=== PATIENT | female | born 1995 | race Caucasian/White ===

== ENCOUNTER 2019-05-26 22:13 | Emergency (ER) | payer SELFPAY ==
[2019-05-27] MEDS ORDERED: ACETAMINOPHEN 325 MG TABLET PO ONE (00:54)
[2019-05-27 02:00] LABS: APPEARANCE,URINE SLIGHTLY-CLOUDY; BILIRUBIN,URINE NEGATIVE (NEGATIVE); COLOR,URINE YELLOW; GLUCOSE, URINE NEGATIVE (NEGATIVE); KETONES,URINE TRACE mg/dL (NEGATIVE); LEUKOCYTE ESTERASE,URINE SMALL (NEGATIVE); NITRITE,URINE NEGATIVE (NEGATIVE); PROTEIN,URINE NEGATIVE (NEGATIVE); URINE SPECIFIC GRAVITY 1.023; UROBILINOGEN,URINE NEGATIVE mg/dL (<2.0)
[2019-05-27 02:16] LABS: ABSOLUTE EOSINOPHILS # (AUTO) 0.1 10^3/uL (0.0-0.6); ABSOLUTE MONOCYTES (AUTO) 0.5 10^3/uL (0.1-1.4); ABSOLUTE NEUT (AUTO) 3.3 10^3/uL (1.7-8.2); BASOPHILS % (AUTO) 0.5 % (0-2); HEMATOCRIT 36.2 % (36.0-47.0); HEMOGLOBIN 12.4 g/dL (12.0-15.5); LYMPHOCYTES % (AUTO) 43.8 % (13-45); MEAN CORPUSCULAR HEMOGLOBIN 30.5 pg (27.0-33.4); MEAN CORPUSCULAR HGB CONC 34.4 g/dL (32.0-36.0); MEAN CORPUSCULAR VOLUME 89 fl (80-97); MONOCYTES % (AUTO) 6.7 % (3-13); PLATELET COUNT 247 10^3/uL (150-450); RED BLOOD COUNT 4.08 10^6/uL (3.72-5.28); TOTAL CELLS COUNTED % (AUTO) 100 %; WHITE BLOOD COUNT 6.9 10^3/uL (4.0-10.5)
[2019-05-27 02:19] LABS: ALBUMIN 4.7 g/dL (3.5-5.0); ALKALINE PHOSPHATASE 74 U/L (38-126); ANION GAP 16 (5-19); ASPARTATE AMINO TRANSFERASE 43 U/L (14-36); BILIRUBIN,DIRECT 0.2 mg/dL (0.0-0.4); BILIRUBIN,TOTAL 0.3 mg/dL (0.2-1.3); BLOOD UREA NITROGEN 14 mg/dL (7-20); CALCIUM 10.4 mg/dL (8.4-10.2); CARBON DIOXIDE 25 mmol/L (22-30); CHLORIDE 97 mmol/L (98-107); GLUCOSE 118 mg/dL (75-110); POTASSIUM 3.8 mmol/L (3.6-5.0); TOTAL PROTEIN 7.8 g/dL (6.3-8.2)
--- NOTE | 2019-05-27 04:12 | ER Document Report ---
ED General - General Chief Complaint: Weakness Stated Complaint: LEFT SIDED WEAKNESS Time Seen by Provider: 05/27/19 04:03 Primary Care Provider: LISANDRO PINK NP [Primary Care Provider] - Follow up as needed Mode of Arrival: Ambulatory Information source: Patient Notes: 23-year-old female presented to ED for complaint of pain and swelling to the left upper thigh area that started on Tuesday. She states she does not remember injuring her thigh at any time. She states she has had a painful weak area in this area and she is also had some weakness to her left arm feels like somebody punched her. States she does not remember any injuries to either of these areas but she does work at [employer]. She does have a history of diabetes and is on Metformin she also has kidney problems and hypothyroid. TRAVEL OUTSIDE OF THE [place] IN LAST 30 DAYS: No - HPI Onset: Other Onset/Duration: Gradual - Tuesday Quality of pain: Achy Severity: Moderate Pain Level: 2 Associated symptoms: Leg swelling Exacerbated by: Denies Relieved by: Denies Similar symptoms previously: Yes Recently seen / treated by doctor: No - Related Data Allergies/Adverse Reactions: No Known Allergies Allergy (Unverified 05/07/11 18:35) Home Medications: Levpthyroxine. Lisinopril. metformin. glipizide Past Medical History - General Information source: Patient - Social History Smoking Status: Never Smoker Chew tobacco use (# tins/day): No Frequency of alcohol use: None Drug Abuse: None Lives with: Family Family History: Reviewed & Not Pertinent Patient has suicidal ideation: No Patient has homicidal ideation: No - Past Medical History Cardiac Medical History: Reports: None Pulmonary Medical History: Reports: None EENT Medical History: Reports: None Neurological Medical History: Endocrine Medical History: Reports: Hx Diabetes Mellitus Type 2, Hx Hypothyroidism Renal/ Medical History: Reports: Hx Ovarian Cysts - PCOS Malignancy Medical History: Reports: None GI Medical History: Reports: Hx Gastroesophageal Reflux Disease Musculoskeletal Medical History: Reports None Skin Medical History: Reports None Psychiatric Medical History: Reports: Hx Obsessive Compulsive Disorder Traumatic Medical History: Reports: None Infectious Medical History: Reports: None Past Surgical History: Reports: Hx Gynecologic Surgery - Ovarian cyst drained at 12 or 13 - Immunizations Immunizations up to date: Yes Hx Diphtheria, Pertussis, Tetanus Vaccination: Yes Review of Systems - Review of Systems Constitutional: No symptoms reported EENT: No symptoms reported Cardiovascular: No symptoms reported Respiratory: No symptoms reported Gastrointestinal: No symptoms reported Genitourinary: No symptoms reported Female Genitourinary: No symptoms reported Musculoskeletal: Muscle pain - Tenderness to left arm and leg Skin: No symptoms reported Hematologic/Lymphatic: No symptoms reported Neurological/Psychological: No symptoms reported -: Yes All other systems reviewed and negative Physical Exam - Vital signs Vitals: Temp Pulse Resp BP Pulse Ox 98.5 F 105 H 20 131/80 H 100 05/26/19 22:24 05/26/19 22:24 05/26/19 22:24 05/26/19 22:24 05/26/19 22:24 Interpretation: Normal - General General appearance: Appears well, Alert - HEENT Head: Normocephalic, Atraumatic Eyes: Normal Pupils: PERRL - Respiratory Respiratory status: No respiratory distress Chest status: Nontender Breath sounds: Normal Chest palpation: Normal - Cardiovascular Rhythm: Regular Heart sounds: Normal auscultation Murmur: No - Abdominal Inspection: Normal Distension: No distension Bowel sounds: Normal Tenderness: Nontender Organomegaly: No organomegaly - Back Back: Normal, Nontender - Extremities General upper extremity: Normal inspection, Nontender, Normal color, Normal ROM, Normal temperature General lower extremity: Normal inspection, Normal color, Normal ROM, Normal temperature, Normal weight bearing. No: Naila's sign Arm: Tender Thigh: Tender - Neurological Neuro grossly intact: Yes Cognition: Normal Orientation: AAOx4 Alexandru Coma Scale Eye Opening: Spontaneous Alexandru Coma Scale Verbal: Oriented Alexandru Coma Scale Motor: Obeys Commands Alexandru Coma Scale Total: 15 Speech: Normal Motor strength normal: LUE, RUE, LLE, RLE Sensory: Normal - Psychological Associated symptoms: Normal affect, Normal mood - Skin Skin Temperature: Warm Skin Moisture: Dry Skin Color: Normal Course - Vital Signs Vital signs: Temp Pulse Resp BP Pulse Ox 98.6 F 92 18 130/69 H 98 05/27/19 04:31 05/27/19 04:31 05/27/19 04:31 05/27/19 04:31 05/27/19 04:31 - Laboratory Result Diagrams: 05/27/19 01:55 05/27/19 01:55 Laboratory results interpreted by me: 05/26/19 05/27/19 23:58 01:55 Chloride 97 L Creatinine 0.35 L Glucose 118 H Calcium 10.4 H AST 43 H Urine Ketones TRACE H Ur Leukocyte Esterase SMALL H Discharge - Discharge Clinical Impression: tenderness to left thigh Condition: Stable Disposition: HOME, SELF-CARE Additional Instructions: You were seen today for pain and tenderness to the left upper thigh. There is no obvious cause for your pain and tenderness to the thigh at this time. It could be a contusion. CONTUSION: Your injury has resulted in a contusion -- a crushing of the deep tissues. No injury to important structures was detected during the physician's exam. Contusions vary in the amount of pain they cause, and in the length of time required for healing. Typically, the area will become bruised, and will remain painful to touch for two or three weeks. However, most patients are back to working and playing within a few days. After the initial period of rest and cold-packs, your symptoms (together with the doctor's recommendations) will determine how rapidly you can get back to full activity. Usually this means "do what feels okay, but don't do things that hurt." If re-examination was recommended, it's important to follow up as instructed. Call the doctor or return any time if pain increases, if swelling becomes severe, if you develop numbness or weakness in an injured extremity, or if any other alarming symptoms occur. USE OF TYLENOL (ACETAMINOPHEN): Acetaminophen may be taken for pain relief or fever control. It's much safer than aspirin, offering a wider range of "safe" dosages. It is safe during . Some brand names are Tylenol, Panadol, Datril, Anacin 3, Tempra, and Liquiprin. Acetaminophen can be repeated every four hours. The following are maximum recommended dosages: WEIGHT Dose Drops Elixir Chewable(80mg) (LBS.) drprs=droppers tsp=teaspoon 6 40 mg 0.4 ml (1/2) 6-11 80 mg 0.8 ml (full) tsp 1 tab 12-16 120 mg 1 1/2 drprs 3/4 tsp 1 1/2 tabs 17-23 160 mg 2 drprs 1 tsp 2 tabs 24-30 240 mg 3 drprs 1 1/2 tsp 3 tabs 30-35 320 mg 2 tsp 4 tabs 36-41 360 mg 2 1/4 tsp 4 1/2 tabs 42-47 400 mg 2 1/2 tsp 5 tabs 48-53 480 mg 3 tsp 6 tabs 54-59 520 mg 3 1/4 tsp 6 1/2 tabs 60-64 560 mg 3 1/2 tsp 7 tabs 65-70 600 mg 3 3/4 tsp 7 1/2 tabs 71-76 640 mg 4 tsp 8 tabs 77-82 720 mg 4 1/2 tsp 9 tabs 83-88 800 mg 5 tsp 10 tabs >89 pounds or adults 650 mg to 900 mg Acetaminophen can be repeated every four hours. Maximum dose not to exceed 4000 mg a day. These maximum recommended dosages are slightly higher than the dosages written on the product container, but these dosages are very safe and below the toxic dosage for acetaminophen. ICE PACKS: Apply ice packs frequently against the painful area. Many different schedules are recommended, such as "20 minutes on, 20 minutes off" or "one hour ice, two hours rest." If you need to work, you may need to go longer between ice treatments. You should plan to have the area ice packed AT LEAST one fourth of the time. The ice should be applied over the wrap, tape, or splint, or over a layer of cloth -- not directly against the skin. Some ice bags have a built-in cloth and can be put directly on the skin. WARM PACKS: After approximately two days, apply gentle heat (such as a heating pad or hot water bottle) for about 20 to 30 minutes about every two hours -- at least four times daily. Warmth and elevation will help you make a more rapid recovery, and will ease the pain considerably. Do not use HOT heat, and never apply heat for longer than 30 minutes. The continuous heat can invisibly damage skin and muscles -- even when no burn is seen on the surface. Damaged muscles can make you MORE sore. FOLLOW-UP CARE: If you have been referred to a physician for follow-up care, call the physicians office for an appointment as you were instructed or within the next two days. If you experience worsening or a significant change in your symptoms, notify the physician immediately or return to the Emergency Department at any time for re-evaluation. Forms: Elevated Blood Pressure, Return to Work Referrals: LISANDRO PINK NP [Primary Care Provider] - Follow up as needed
[2019-05-27 04:33] VITALS: BP 130/69
--- NOTE | 2019-05-27 19:33 | EKG REPORT ---
SEVERITY:- ABNORMAL ECG - SINUS RHYTHM CONSIDER LEFT VENTRICULAR HYPERTROPHY : Confirmed by: Iveth Bauman MD 27-May-2019 19:33:09
== END 2019-05-27 04:31 | disposition home or self-care (01) ==
LOC: ER 22:13
DX: M79.652 Pain in left thigh (principal); R53.1 Weakness; M79.89 Other specified soft tissue disorders; E11.9 Type 2 diabetes mellitus without complications; Z79.84 Long term (current) use of oral hypoglycemic drugs
CPT/HCPCS: 36415; 80053; 81001; 81025; 85025; 87086; 87088; 87186; 93005; 93010; 99283

== ENCOUNTER 2019-07-16 18:26 | Emergency (ER) | payer SELFPAY ==
--- NOTE | 2019-07-16 19:22 | ER Document Report ---
ED Medical Screen (RME) - General Chief Complaint: Sore Throat Stated Complaint: SORE THROAT,HEADACHE,CONGESTION Time Seen by Provider: 07/16/19 19:18 Primary Care Provider: LISANDRO PINK NP [Primary Care Provider] - Follow up as needed Mode of Arrival: Ambulatory Information source: Patient Notes: 23-year-old female presented to ED with cough cold congestion with sore throat. She is here with her sister who also has fever nausea and vomiting. This young lady has diabetes type 2 with a pulse of 112. Otherwise vital signs are stable. Patient is alert oriented respirations regular nonlabored speaking in full sentences. She does have a history of PCOS diabetes type 2 and has had 1 surgery cyst drained. She does not smoke drink or use any drugs. I have greeted and performed a rapid initial assessment of this patient. A comprehensive ED assessment and evaluation of the patient, analysis of test results and completion of medical decision making process will be conducted by an additional ED providers. TRAVEL OUTSIDE OF THE [place] IN LAST 30 DAYS: No - Related Data Allergies/Adverse Reactions: No Known Allergies Allergy (Unverified 05/07/11 18:35) Past Medical History - Past Medical History Cardiac Medical History: Pulmonary Medical History: Denies: Hx Tuberculosis Neurological Medical History: Endocrine Medical History: Reports: Hx Diabetes Mellitus Type 2, Hx Hypothyroidism Renal/ Medical History: Reports: Hx Ovarian Cysts - PCOS, Hx Pelvic Inflammatory Disease Malignancy Medical History: Denies: Hx Breast Cancer, Hx Cervical Cancer, Hx Ovarian Cancer GI Medical History: Reports: Hx Gastroesophageal Reflux Disease Musculoskeltal Medical History: Psychiatric Medical History: Reports: Hx Obsessive Compulsive Disorder Infectious Medical History: Past Surgical History: Reports: Hx Gynecologic Surgery - Ovarian cyst drained at 12 or 13. Denies: Hx Hysterectomy, Hx Pacemaker - Immunizations Immunizations up to date: Yes Hx Diphtheria, Pertussis, Tetanus Vaccination: Yes Physical Exam - Vital signs Vitals: Temp Pulse Resp BP Pulse Ox 98.4 F 116 H 20 148/93 H 100 07/16/19 18:39 07/16/19 18:39 07/16/19 18:39 07/16/19 18:39 07/16/19 18:39 Course - Vital Signs Vital signs: Temp Pulse Resp BP Pulse Ox 98.4 F 116 H 20 148/93 H 100 07/16/19 18:39 07/16/19 18:39 07/16/19 18:39 07/16/19 18:39 07/16/19 18:39 Doctor's Discharge - Discharge Referrals: LISANDRO PINK SALARY AND WAGE ADMINISTRATOR [Primary Care Provider] - Follow up as needed
[2019-07-16 20:12] LABS: ABSOLUTE EOSINOPHILS # (AUTO) 0.1 10^3/uL (0.0-0.6); ABSOLUTE LYMPHOCYTES (AUTO) 1.5 10^3/uL (0.5-4.7); ABSOLUTE MONOCYTES (AUTO) 0.4 10^3/uL (0.1-1.4); ABSOLUTE NEUT (AUTO) 4.4 10^3/uL (1.7-8.2); BASOPHILS % (AUTO) 0.7 % (0-2); EOSINOPHILS % (AUTO) 0.9 % (0-6); HEMATOCRIT 34.9 % (36.0-47.0); LYMPHOCYTES % (AUTO) 23.3 % (13-45); MEAN CORPUSCULAR HGB CONC 34.5 g/dL (32.0-36.0); MEAN CORPUSCULAR VOLUME 90 fl (80-97); MONOCYTES % (AUTO) 6.7 % (3-13); PLATELET COUNT 195 10^3/uL (150-450); RED BLOOD COUNT 3.87 10^6/uL (3.72-5.28); RED CELL DISTRIBUTION WIDTH 13.4 % (11.5-14.0); SEGMENTED NEUTROPHILS % (AUTO) 68.4 % (42-78); TOTAL CELLS COUNTED % (AUTO) 100 %; WHITE BLOOD COUNT 6.5 10^3/uL (4.0-10.5)
[2019-07-16 20:22] LABS: APPEARANCE,URINE CLOUDY; BILIRUBIN,URINE NEGATIVE (NEGATIVE); COLOR,URINE YELLOW; GLUCOSE, URINE 50 mg/dL (NEGATIVE); KETONES,URINE 20 mg/dL (NEGATIVE); PROTEIN,URINE NEGATIVE (NEGATIVE); URINE SPECIFIC GRAVITY 1.027; UROBILINOGEN,URINE NEGATIVE mg/dL (<2.0)
[2019-07-16 20:28] LABS: A TYPE INFLUENZA AG NEGATIVE (NEGATIVE); B INFLUENZA AG NEGATIVE (NEGATIVE)
[2019-07-16 20:34] LABS: ALBUMIN 4.5 g/dL (3.5-5.0); ALKALINE PHOSPHATASE 64 U/L (38-126); ANION GAP 12 (5-19); ASPARTATE AMINO TRANSFERASE 42 U/L (14-36); BILIRUBIN,TOTAL 0.4 mg/dL (0.2-1.3); BLOOD UREA NITROGEN 10 mg/dL (7-20); CALCIUM 9.5 mg/dL (8.4-10.2); CARBON DIOXIDE 25 mmol/L (22-30); CHLORIDE 101 mmol/L (98-107); GLUCOSE 165 mg/dL (75-110); POTASSIUM 4.3 mmol/L (3.6-5.0); TOTAL PROTEIN 7.2 g/dL (6.3-8.2)
--- NOTE | 2019-07-17 00:38 | ER Document Report ---
ED Flu Like - General Chief Complaint: Sore Throat Stated Complaint: SORE THROAT,HEADACHE,CONGESTION Time Seen by Provider: 07/16/19 19:18 Primary Care Provider: LISANDRO PINK NP [Primary Care Provider] - Follow up as needed Mode of Arrival: Ambulatory Notes: CHIEF COMPLAINT: Flulike symptoms for 1 day HPI: 23-year-old female with 1 day of flulike symptoms. Complaining of sore throat. Today developed generalized body ache and nausea without vomiting. No dysuria. Denies abdominal pain. States that she did develop very slight dry cough today. Patient sister has same complaints but became sick first and was vomiting. ROS: See HPI - all other systems were reviewed and are otherwise negative Constitutional: no fever Eyes: no drainage, no blurred vision ENT: no runny nose, positive sore throat sore throat Cardiovascular: no chest pain Resp: no SOB, positive cough cough GI: no vomiting, no diarrhea, no abdominal pain, positive nausea : no dysuria Integumentary: no rash Allergy: no hives Musculoskeletal: Positive extremity pain or swelling Neurological: no numbness/tingling, no weakness MEDICATIONS: I agree with the patient medications as charted by the RN. ALLERGIES: I agree with the allergies as charted by the RN. PAST MEDICAL HISTORY/PAST SURGICAL HISTORY: Reviewed and agree as charted by RN. SOCIAL HISTORY: Reviewed and agree as charted by RN. FAMILY HISTORY: No significant familial comorbid conditions directly related to patient complaint EXAM: Reviewed vital signs as charted by RN. CONSTITUTIONAL: Alert and oriented and responds appropriately to questions. Well-appearing; well-nourished HEAD: Normocephalic; atraumatic EYES: PERRL; Conjunctivae clear, sclerae non-icteric ENT: normal nose; no rhinorrhea; moist mucous membranes; pharynx mild erythema noted, no uvula edema or deviation, no tonsillar hypertrophy, phonation normal NECK: Supple without meningismus; non-tender; no cervical lymphadenopathy, no masses CARD: RRR; no murmurs, no clicks, no rubs, no gallops; symmetric distal pulses RESP: Normal chest excursion without splinting or tachypnea; breath sounds clear and equal bilaterally; no wheezes, no rhonchi, no rales, pulse oximetry 99% on room air not hypoxic ABD/GI: Normal bowel sounds; non-distended; soft, non-tender, no rebound, no guarding; no palpable organomegaly or masses. BACK: The back appears normal and is non-tender to palpation, there is no CVA tenderness EXT: Normal ROM in all joints; non-tender to palpation; no cyanosis, no effusions, no edema SKIN: Normal color for age and race; warm; dry; good turgor; no acute lesions noted NEURO: Moves all extremities equally; Motor and sensory function intact PSYCH: The patient's mood and manner are appropriate. Grooming and personal hygiene are appropriate. MDM: 23-year-old female presenting for flulike symptoms. Initial work-up through triage process, normal lab work, negative strep negative flu. Lung sounds are clear to auscultation she developed a dry cough today, low suspicion for pneumonia. Sister has similar symptoms and is also presenting, likely a viral etiology will treat symptomatically TRAVEL OUTSIDE OF THE [place] IN LAST 30 DAYS: No - Related Data Allergies/Adverse Reactions: No Known Allergies Allergy (Verified 07/16/19 19:23) Home Medications: metformin, glipizide, lisinopril, synthroid Past Medical History - General Information source: Patient - Social History Smoking Status: Never Smoker Frequency of alcohol use: None Drug Abuse: None Family History: Reviewed & Not Pertinent Patient has suicidal ideation: No Patient has homicidal ideation: No - Past Medical History Cardiac Medical History: Pulmonary Medical History: Denies: Hx Tuberculosis Neurological Medical History: Endocrine Medical History: Reports: Hx Diabetes Mellitus Type 2, Hx Hypothyroidism Renal/ Medical History: Reports: Hx Ovarian Cysts - PCOS, Hx Pelvic Inflammatory Disease Malignancy Medical History: Denies: Hx Breast Cancer, Hx Cervical Cancer, Hx Ovarian Cancer GI Medical History: Reports: Hx Gastroesophageal Reflux Disease Musculoskeletal Medical History: Psychiatric Medical History: Reports: Hx Obsessive Compulsive Disorder Infectious Medical History: Past Surgical History: Reports: Hx Gynecologic Surgery - Ovarian cyst drained at 12 or 13. Denies: Hx Hysterectomy, Hx Pacemaker - Immunizations Immunizations up to date: Yes Hx Diphtheria, Pertussis, Tetanus Vaccination: Yes Physical Exam - Vital signs Vitals: Temp Pulse Resp BP Pulse Ox 98.4 F 116 H 20 148/93 H 100 07/16/19 18:39 07/16/19 18:39 07/16/19 18:39 07/16/19 18:39 07/16/19 18:39 Course - Vital Signs Vital signs: Temp Pulse Resp BP Pulse Ox 98.8 F 99 20 139/82 H 98 07/16/19 23:43 07/16/19 23:43 07/16/19 23:43 07/16/19 23:43 07/16/19 23:43 - Laboratory Result Diagrams: 07/16/19 19:24 07/16/19 19:24 Laboratory results interpreted by me: 07/16/19 07/16/19 07/16/19 19:24 19:24 19:24 Hct 34.9 L Creatinine 0.38 L Glucose 165 H AST 42 H ALT 43 H Urine Glucose (UA) 50 H Urine Ketones 20 H Leukocyte Esterase Rfl TRACE H Discharge - Discharge Clinical Impression: Influenza-like illness Condition: Stable Disposition: HOME, SELF-CARE Additional Instructions: 1. hydrate well at home with juices and water 2. treat fevers and body aches with Motrin and Tylenol 3. out of school or work for the next 2 days 4. follow up recheck with your PCP in 1-2 days, call for appt. 5. return to the ED for worsening condition 6. Zofran for nausea Prescriptions: Ibuprofen [Motrin 600 Mg Tablet] 600 mg PO Q6H #15 tablet Ondansetron [Zofran Odt 4 mg Tablet] 1 - 2 tab PO Q4H PRN #15 tab.rapdis PRN Reason: For Nausea/Vomiting Referrals: LISANDRO PINK, AUTOMATION DEVELOPER [Primary Care Provider] - Follow up as needed
[2019-07-17 01:01] VITALS: BP 139/76
== END 2019-07-17 01:06 | disposition home or self-care (01) ==
LOC: ER 18:26
DX: J11.1 Influenza due to unidentified influenza virus with other respiratory manifestations (principal); J02.9 Acute pharyngitis, unspecified; R51 Headache; R09.81 Nasal congestion; M79.10 Myalgia, unspecified site; R11.0 Nausea; Z79.84 Long term (current) use of oral hypoglycemic drugs; Z79.899 Other long term (current) drug therapy; E11.9 Type 2 diabetes mellitus without complications
CPT/HCPCS: 36415; 80053; 81001; 84703; 85025; 87070; 87086; 87088; 87186; 87804; 87880; 99283

== ENCOUNTER 2019-10-10 11:15 | Emergency (ER) | payer OTHER ==
--- NOTE | 2019-10-10 11:50 | ER Document Report ---
ED Respiratory Problem - General Chief Complaint: Cough Stated Complaint: COUGH Time Seen by Provider: 10/10/19 11:33 Primary Care Provider: LISANDRO PINK NP [Primary Care Provider] - Follow up as needed Notes: CHIEF COMPLAINT: Sore throat for 3 days HPI: 24-year-old female presenting for sore throat for 3 days. No voice change. No definite fever. Slight dry cough today. No shortness of breath no chest pain. 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 ALLERGIES: I agree with the allergies as charted by the RN. PAST MEDICAL HISTORY/PAST SURGICAL HISTORY: Reviewed and agree as charted by RN. SOCIAL HISTORY: Reviewed and agree as charted by RN. FAMILY HISTORY: No significant familial comorbid conditions directly related to patient complaint EXAM: Reviewed vital signs as charted by RN. CONSTITUTIONAL: Alert and oriented and responds appropriately to questions. Well-appearing; well-nourished HEAD: Normocephalic; atraumatic EYES: PERRL; Conjunctivae clear, sclerae non-icteric ENT: normal nose; no rhinorrhea; moist mucous membranes; posterior pharynx with mild tonsillar hypertrophy with exudate, no uvula edema or deviation, phonation normal NECK: Supple without meningismus; non-tender; + 99% on room air not hypoxic cervical lymphadenopathy, no masses CARD: RRR; no murmurs, no clicks, no rubs, no gallops; symmetric distal pulses RESP: Normal chest excursion without splinting or tachypnea; breath sounds clear and equal bilaterally; no wheezes, no rhonchi, no rales, pulse oximetry ABD/GI: Normal bowel sounds; non-distended; soft, non-tender, no rebound, no guarding; no palpable organomegaly or masses. BACK: The back appears normal and is non-tender to palpation, there is no CVA tenderness EXT: Normal ROM in all joints; non-tender to palpation; no cyanosis, no effusions, no edema SKIN: Normal color for age and race; warm; dry; good turgor; no acute lesions noted NEURO: Moves all extremities equally; Motor and sensory function intact PSYCH: The patient's mood and manner are appropriate. Grooming and personal hygiene are appropriate. MDM: 24-year-old female with sore throat complaint for 3 days. Rapid strep sent. TRAVEL OUTSIDE OF THE [place] IN LAST 30 DAYS: No - Related Data Allergies/Adverse Reactions: No Known Allergies Allergy (Verified 07/16/19 19:23) Past Medical History - Social History Smoking Status: Unknown if Ever Smoked Family History: Reviewed & Not Pertinent - Past Medical History Cardiac Medical History: Pulmonary Medical History: Denies: Hx Tuberculosis Neurological Medical History: Endocrine Medical History: Reports: Hx Diabetes Mellitus Type 2, Hx Hypothyroidism Renal/ Medical History: Reports: Hx Ovarian Cysts - PCOS, Hx Pelvic Inflammatory Disease Malignancy Medical History: Denies: Hx Breast Cancer, Hx Cervical Cancer, Hx Ovarian Cancer GI Medical History: Reports: Hx Gastroesophageal Reflux Disease Musculoskeletal Medical History: Psychiatric Medical History: Reports: Hx Obsessive Compulsive Disorder Infectious Medical History: Past Surgical History: Reports: Hx Gynecologic Surgery - Ovarian cyst drained at 12 or 13. Denies: Hx Hysterectomy, Hx Pacemaker - Immunizations Immunizations up to date: Yes Hx Diphtheria, Pertussis, Tetanus Vaccination: Yes Physical Exam - Vital signs Vitals: Temp Pulse Resp BP Pulse Ox 98.4 F 104 H 16 135/89 H 97 10/10/19 11:21 10/10/19 11:21 10/10/19 11:21 10/10/19 11:21 10/10/19 11:21 Course - Re-evaluation Re-evalutation: 10/10/19 12:37 Patient's rapid strep is negative but I believe patient has tonsillitis. Will treat with amoxicillin. Throat culture is pending. - Vital Signs Vital signs: Temp Pulse Resp BP Pulse Ox 98.4 F 104 H 16 135/89 H 97 10/10/19 11:46 10/10/19 11:21 10/10/19 11:21 10/10/19 11:21 10/10/19 11:21 Discharge - Discharge Clinical Impression: Tonsillitis Condition: Stable Disposition: HOME, SELF-CARE Additional Instructions: Your rapid strep test was negative today, there is a throat culture pending but I do believe that you have tonsillitis, will treat with antibiotics to take as directed. Salt water gargles to help with throat discomfort 3 or 4 times daily. Take ibuprofen or Tylenol consistently for pain. Follow-up with a primary care provider for reevaluation of symptoms call for appointment. Return for worsening symptoms Prescriptions: Amoxicillin 1 tab PO TID #30 tab Forms: Return to Work Referrals: LISANDRO PINK NP [Primary Care Provider] - Follow up as needed
[2019-10-10 13:02] VITALS: BP 132/84
== END 2019-10-10 12:55 | disposition home or self-care (01) ==
LOC: ER 11:15
DX: J03.90 Acute tonsillitis, unspecified (principal); R05 Cough; E11.9 Type 2 diabetes mellitus without complications
CPT/HCPCS: 87070; 87880; 99282

== ENCOUNTER 2019-11-30 12:25 | Emergency (ER) | payer OTHER ==
[2019-11-30] MEDS ORDERED: NORMAL SALINE 1000 ML 1,000 ML IV ONE ×2 (13:13→16:16)
[2019-11-30] MEDS ORDERED: ONDANSETRON HCL INJ/PF 4 MG/2 ML SDV IV ONE (13:14)
[2019-11-30 13:50] LABS: HEMATOCRIT 34.8 % (36.0-47.0); HEMOGLOBIN 12.2 g/dL (12.0-15.5); MEAN CORPUSCULAR HEMOGLOBIN 31.5 pg (27.0-33.4); MEAN CORPUSCULAR VOLUME 90 fl (80-97); PLATELET COUNT 133 10^3/uL (150-450); RED BLOOD COUNT 3.86 10^6/uL (3.72-5.28); RED CELL DISTRIBUTION WIDTH 13.6 % (11.5-14.0)
[2019-11-30 14:10] LABS: ALBUMIN 4.4 g/dL (3.5-5.0); ALKALINE PHOSPHATASE 68 U/L (38-126); ANION GAP 8 (5-19); ASPARTATE AMINO TRANSFERASE 55 U/L (14-36); BLOOD UREA NITROGEN 10 mg/dL (7-20); CALCIUM 9.2 mg/dL (8.4-10.2); CARBON DIOXIDE 27 mmol/L (22-30); CHLORIDE 102 mmol/L (98-107); GLUCOSE 117 mg/dL (75-110); POTASSIUM 3.5 mmol/L (3.6-5.0); TOTAL PROTEIN 7.8 g/dL (6.3-8.2)
[2019-11-30 14:14] LABS: ABSOLUTE LYMPHOCYTES# (MANUAL) 2.6 10^3/uL (0.5-4.7); ABSOLUTE MONOCYTES # (MANUAL) 0.6 10^3/uL (0.1-1.4); BASOPHILS % (MANUAL) 0 % (0-2); EOSINOPHILS % (MANUAL) 0 % (0-6); LYMPHOCYTES % (MANUAL) 40 % (13-45); MONOCYTES % (MANUAL) 12 % (3-13); SEGMENTED NEUTROPHILS % (MAN) 36 % (42-78); TOTAL CELLS COUNTED 100
[2019-11-30 14:15] LABS: ANISOCYTOSIS SLIGHT; POLYCHROMASIA SLIGHT
[2019-11-30 14:16] LABS: PLATELET COMMENT DECREASED; PLATELET GIANT PRESENT
--- NOTE | 2019-11-30 14:34 | ER Document Report ---
ED GI/ - General Chief Complaint: Nausea/Vomiting Stated Complaint: HEADACHE/BACK PAIN/N/V Time Seen by Provider: 11/30/19 13:13 Primary Care Provider: NARAYAN,NO [Primary Care Provider] - Follow up as needed Notes: CHIEF COMPLAINT: Right lower back pain nausea vomiting HPI: 24-year-old female presenting to the emergency department complaining of right lower back pain with an episode of nausea vomiting today. Patient does work in a restaurant. She is concerned about COVID. Denies dysuria. Denies fever. Denies chest pain cough shortness of breath sore throat. Denies abdominal or pelvic pain ROS: See HPI - all other systems were reviewed and are otherwise negative Constitutional: no fever Eyes: no drainage, no blurred vision ENT: no runny nose, no sore throat Cardiovascular: no chest pain Resp: no SOB, no cough GI: + vomiting, no diarrhea, no abdominal pain : no dysuria Integumentary: no rash Allergy: no hives Musculoskeletal: no extremity pain or swelling Neurological: no numbness/tingling, no weakness MEDICATIONS: I agree with the patient medications as charted by the RN. ALLERGIES: I agree with the allergies as charted by the RN. PAST MEDICAL HISTORY/PAST SURGICAL HISTORY: Reviewed and agree as charted by RN. SOCIAL HISTORY: Reviewed and agree as charted by RN. FAMILY HISTORY: No significant familial comorbid conditions directly related to patient complaint EXAM: Reviewed vital signs as charted by RN. CONSTITUTIONAL: Alert and oriented and responds appropriately to questions. Well-appearing; well-nourished HEAD: Normocephalic; atraumatic EYES: PERRL; Conjunctivae clear, sclerae non-icteric ENT: normal nose; no rhinorrhea; moist mucous membranes; pharynx without lesions noted, no uvula edema or deviation, no tonsillar hypertrophy, phonation normal NECK: Supple without meningismus; non-tender; no cervical lymphadenopathy, no masses CARD: RRR; no murmurs, no clicks, no rubs, no gallops; symmetric distal pulses RESP: Normal chest excursion without splinting or tachypnea; breath sounds clear and equal bilaterally; no wheezes, no rhonchi, no rales, pulse oximetry 97% on room air not hypoxic ABD/GI: Normal bowel sounds; non-distended; soft, there is absolutely no abdominal pain or flank pain on palpation, no rebound, no guarding; no palpable organomegaly or masses. BACK: The back appears normal and is non-tender to palpation directly over the thoracic and lumbar spine. Very mild right lower lateral lumbar muscular tenderness on palpation, there is no CVA tenderness EXT: Normal ROM in all joints; non-tender to palpation; no cyanosis, no effusions, no edema SKIN: Normal color for age and race; warm; dry; good turgor; no acute lesions noted NEURO: Moves all extremities equally; Motor and sensory function intact PSYCH: The patient's mood and manner are appropriate. Grooming and personal hygiene are appropriate. MDM: 24-year-old female with an episode of vomiting today, right lower back pain that changes with position and movement. Pain does not radiate into the abdomen, unlikely to be renal colic. She has no dysuria but will check urinalys is basic screening labs and COVID test TRAVEL OUTSIDE OF THE [place] IN LAST 30 DAYS: No - Related Data Allergies/Adverse Reactions: No Known Allergies Allergy (Verified 07/16/19 19:23) Home Medications: Metformin, Glipizide Past Medical History - Social History Smoking Status: Current Some Day Smoker Family History: Reviewed & Not Pertinent - Past Medical History Cardiac Medical History: Pulmonary Medical History: Denies: Hx Tuberculosis Neurological Medical History: Endocrine Medical History: Reports: Hx Diabetes Mellitus Type 2, Hx Hypoth yroidism Renal/ Medical History: Reports: Hx Ovarian Cysts - PCOS, Hx Pelvic Inflammatory Disease Malignancy Medical History: Denies: Hx Breast Cancer, Hx Cervical Cancer, Hx Ovarian Cancer GI Medical History: Reports: Hx Gastroesophageal Reflux Disease Musculoskeletal Medical History: Psychiatric Medical History: Reports: Hx Obsessive Compulsive Disorder Infectious Medical History: Past Surgical History: Reports: Hx Gynecologic Surgery - Ovarian cyst drained at 12 or 13. Denies: Hx Hysterectomy, Hx Pacemaker - Immunizations Immunizations up to date: Yes Hx Diphtheria, Pertussis, Tetanus Vaccination: Yes Physical Exam - Vital signs Vitals: Temp Pulse Resp BP Pulse Ox 99.0 F 124 H 16 123/78 97 11/30/19 12:40 11/30/19 12:40 11/30/19 12:40 11/30/19 12:40 11/30/19 12:40 Course - Re-evaluation Re-evalutation: 11/30/19 16:03 Patient is not . Urine shows evidence of hematuria but she just started her menstrual cycle. Back pain is likely musculoskeletal in nature. Will discharge home as a person under investigation at this time follow-up PCP 11/30/19 16:15 Requested that nursing recheck heart rate prior to discharge and it is still tachycardic at 121. We will add TSH, hydration 11/30/19 16:38 I spoke with the patient about her heart rate, she states she has a history of tachycardia that was evaluated in high school. Father has history of atrial fibrillation. Awaiting EKG 11/30/19 16:43 EKG sinus tachycardia ventricular rate of 107 with a NH of 160. Possible left ventricular hypertrophy otherwise no other ectopy noted - Vital Signs Vital signs: Temp Pulse Resp BP Pulse Ox 98.9 F 121 H 16 114/64 99 11/30/19 16:12 11/30/19 16:12 11/30/19 16:12 11/30/19 16:12 11/30/19 16:12 - Laboratory Result Diagrams: 11/30/19 13:37 11/30/19 13:37 Laboratory results interpreted by me: 11/30/19 11/30/19 11/30/19 13:37 13:37 14:50 Hct 34.8 L Plt Count 133 L Seg Neuts % (Manual) 36 L Sodium 136.8 L Potassium 3.5 L Creatinine 0.42 L Glucose 117 H AST 55 H ALT 65 H Urine Blood MODERATE H Discharge - Discharge Clinical Impression: Tachycardia, Person under investigation for COVID-19 Lower back pain Qualifiers: Chronicity: acute Back pain laterality: right Sciatica presence: without sciatica Qualified Code(s): M54.5 - Low back pain Vomiting Qualifiers: Vomiting type: unspecified Vomiting Intractability: non-intractable Nausea presence: with nausea Qualified Code(s): R11.2 - Nausea with vomiting, unspe cified Condition: Stable Disposition: HOME, SELF-CARE Additional Instructions: Continue to hydrate well at home. Take Zofran for any recurrent nausea vomiting. Take naproxen for low back pain. Your lab work did not show acute emergent abnormalities. Follow-up with your primary care provider for reevaluation of symptoms call for appointment. It was noted that you are tachycardic today which means you have an elevated heart rate. Follow-up with cardiology for further evaluation of this issue. You are considered a person under investigation for COVID-19 at this time quarantine at home until you have a negative test. Prescriptions: Naproxen 500 mg PO BID PRN #14 tablet PRN Reason: Ondansetron [Zofran Odt 4 mg Tablet] 1 - 2 tab PO Q4H PRN #15 tab.rapdis PRN Reason: For Nausea/Vomiting Forms: Return to Work Referrals: NAVID WYATT MD [COMMUNITY BASED STAFF] - Follow up as needed AKILAH AVALOS MD [ACTIVE STAFF] - Follow up as needed
[2019-11-30 15:08] LABS: APPEARANCE,URINE CLEAR; BILIRUBIN,URINE NEGATIVE (NEGATIVE); COLOR,URINE STRAW; GLUCOSE, URINE NEGATIVE (NEGATIVE); KETONES,URINE NEGATIVE (NEGATIVE); LEUKOCYTE ESTERASE,URINE NEGATIVE (NEGATIVE); NITRITE,URINE NEGATIVE (NEGATIVE); PROTEIN,URINE NEGATIVE (NEGATIVE); URINE SPECIFIC GRAVITY 1.004; UROBILINOGEN,URINE NEGATIVE mg/dL (<2.0)
[2019-11-30] MEDS ORDERED: KETOROLAC TROMETHAMINE INJ/PF 30 MG/1 ML SDV IV ONE (15:54)
[2019-11-30 16:47] LABS: URINE AMPHETAMINES SCREEN NEGATIVE; URINE BARBITURATES SCREEN NEGATIVE; URINE BENZODIAZEPINES SCREEN NEGATIVE; URINE COCAINE SCREEN NEGATIVE; URINE MARIJUANA (THC) SCREEN NEGATIVE; URINE METHADONE SCREEN NEGATIVE; URINE PHENCYCLIDINE SCREEN NEGATIVE
[2019-11-30 17:34] VITALS: BP 118/60
--- NOTE | 2019-11-30 22:06 | EKG REPORT ---
SEVERITY:- ABNORMAL ECG - SINUS TACHYCARDIA CONSIDER LEFT VENTRICULAR HYPERTROPHY : Confirmed by: Iveth Bauman MD 30-Nov-2019 22:06:02
[2019-12-03 13:10] LABS: PATH REVIEW PATHOLOGIST REVIEWED
== END 2019-11-30 17:33 | disposition home or self-care (01) ==
LOC: ER 12:25
DX: R00.0 Tachycardia, unspecified (principal); R11.2 Nausea with vomiting, unspecified; R51 Headache; M54.5 Low back pain; F17.200 Nicotine dependence, unspecified, uncomplicated; Z20.828 Contact with and (suspected) exposure to other viral communicable diseases; E11.9 Type 2 diabetes mellitus without complications
CPT/HCPCS: 93005; 99283; 96361; 96374; 96375; 36415; 83690; 84443; 85025; 87635; 81025; 80053; 81001; 80307; 93010; J1885; J2405; J7030; C9803

== ENCOUNTER 2020-02-10 10:18 | Emergency (ER) | payer SELFPAY ==
[2020-02-10 10:25] VITALS: BP 131/84
--- NOTE | 2020-02-10 11:14 | ER Document Report ---
Entered by ZENA MARIN SCRIBE 02/10/20 1027 Acting as scribe for:DIRK MARQUES MD ED ENT - General Chief Complaint: Sore Throat Stated Complaint: SORE THROAT Time Seen by Provider: 02/10/20 10:26 Mode of Arrival: Ambulatory Information source: Patient Notes: This 24 year old female patient presents to the emergency department today with complaints of a sore throat for the last x3 days along with x1-2 of congestion, a cough that began last night, and a headache that began this morning. Patient mentions that she just recently returned from a two day stay in [place]. She was not in an area that she knew to be highly concentrated with COVID-19 cases and she did not come into contact with anyone that she knows had COVID-19. Her last menstrual period was two weeks ago and she denies being . TRAVEL OUTSIDE OF THE [place] IN LAST 30 DAYS: No - Related Data Allergies/Adverse Reactions: No Known Allergies Allergy (Verified 02/10/20 10:44) Past Medical History - General Information source: Patient - Social History Smoking Status: Never Smoker Cigarette use (# per day): No Frequency of alcohol use: Occasional Drug Abuse: None Occupation: [employer] at [employer] Lives with: Family Family History: Reviewed & Not Pertinent - Past Medical History Cardiac Medical History: Pulmonary Medical History: Neurological Medical History: Endocrine Medical History: Reports: Hx Diabetes Mellitus Type 2, Hx Hypothyroidism Renal/ Medical History: Reports: Hx Ovarian Cysts - PCOS, Hx Pelvic Inflammatory Disease GI Medical History: Reports: Hx Gastroesophageal Reflux Disease Musculoskeletal Medical History: Infectious Medical History: Past Surgical History: Reports: Hx Gynecologic Surgery - Ovarian cyst drained laparoscopically at 12 years old - Immunizations Immunizations up to date: Yes Hx Diphtheria, Pertussis, Tetanus Vaccination: Yes Review of Systems - Review of Systems Constitutional: denies: Fever EENT: See HPI, Nose congestion, Throat pain Cardiovascular: No symptoms reported Respiratory: See HPI, Cough Gastrointestinal: No symptoms reported Genitourinary: No symptoms reported Female Genitourinary: denies: Musculoskeletal: No symptoms reported Skin: No symptoms reported Hematologic/Lymphatic: No symptoms reported Neurological/Psychological: No symptoms reported -: Yes All other systems reviewed and negative Physical Exam - Vital signs Vitals: Temp Pulse Resp BP Pulse Ox 99.4 F 117 H 20 131/84 H 100 02/10/20 10:24 02/10/20 10:24 02/10/20 10:24 02/10/20 10:24 02/10/20 10:24 - Notes Notes: Physical Exam: General: Alert, appears well. Hoarse voice. HEENT: Normocephalic. Atraumatic. PERRL. Extraocular movements intact. Oropharynx clear. Posterior oropharynx erythema without tonsillar hypertrophy or uvular edema. Neck: Supple. Non-tender. Respiratory: No respiratory distress. Coarse breath sounds with rhonchi bilaterally. Cardiovascular: Regular rate and rhythm. Abdominal: Normal Inspection. Non-tender. No distension. Normal Bowel Sounds. Back: No gross abnormalities. Extremities: Moves all four extremities. Upper extremities: Normal inspection. Normal ROM. Lower extremities: Normal inspection. No edema. Normal ROM. Neurological: Normal cognition. AAOx4. Normal speech. Psychological: Normal affect. Normal Mood. Skin: Warm. Dry. Normal color. Course - Re-evaluation Re-evalutation: 02/10/20 11:14 The patient was evaluated during the global COVID-19 pandemic and that diagnosis was suspected/considered upon their initial presentation. Their evaluation, treatment and testing was consistent with current guidelines for patients who present with complaints or symptoms that may be related to COVID-19. - Vital Signs Vital signs: Temp Pulse Resp BP Pulse Ox 99.4 F 117 H 20 131/84 H 100 02/10/20 10:25 02/10/20 10:24 02/10/20 10:24 02/10/20 10:24 02/10/20 10:24 Discharge - Discharge Clinical Impression: Viral upper respiratory tract infection with cough, Encounter for laboratory testing for COVID-19 virus Condition: Stable Disposition: HOME, SELF-CARE Instructions: COVID-19 Guidance for Persons Under Investigation Additional Instructions: Upper Respiratory Illness You have a viral infection of the respiratory passages -- a "cold." This common infection causes nasal congestion, drainage, and often sore throat and cough. It is caused by a virus and is highly contagious. The disease usually lasts a week or more, though the worst symptoms are usually over in 3 or 4 days. There is no "cure" for the viral infection -- it must run its course. If there is a complication, such as bacterial infection in the nose, sinuses, middle ear, or bronchial tubes, antibiotics may be required, but antibiotics won't affect the virus. If you smoke, you should STOP!! Drink plenty of fluids. A humidifier may help. An expectorant medication or decongestant may make you more comfortable. Use acetaminophen or ibuprofen for fever or aches. See the doctor if fever persists over two or three days, if there is any significant worsening of your symptoms, or if you simply fail to improve as expected. Take Tylenol and ibuprofen for pain and fever. Drink plenty of fluids get plenty of rest. Self isolate until you get the results of the COVID testing. RETURN TO THE EMERGENCY ROOM IF ANY NEW OR WORSENING SYMPTOMS. I personally performed the services described in the documentation, reviewed and edited the documentation which was dictated to the scribe in my presence, and it accurately records my words and actions.
== END 2020-02-10 12:20 | disposition home or self-care (01) ==
LOC: ER 10:18
DX: J06.9 Acute upper respiratory infection, unspecified (principal); B97.89 Other viral agents as the cause of diseases classified elsewhere; J02.9 Acute pharyngitis, unspecified; R05 Cough; R09.81 Nasal congestion; Z20.828 Contact with and (suspected) exposure to other viral communicable diseases; E11.9 Type 2 diabetes mellitus without complications
CPT/HCPCS: 99283; 87070; 87880; 87635; C9803; 87077

== ENCOUNTER 2020-03-18 11:53 | Emergency (ER) | payer SELFPAY ==
[2020-03-18 12:07] VITALS: BP 136/87
[2020-03-18] MEDS ORDERED: IBUPROFEN 600 MG TABLET PO ONE (13:03)
[2020-03-18] MEDS ORDERED: ONDANSETRON 4 MG TAB.RAPDIS PO ONE (13:03)
--- NOTE | 2020-03-18 13:05 | ER Document Report ---
ED Medical Screen (RME) - General Chief Complaint: Sore Throat Stated Complaint: SORE THROAT Time Seen by Provider: 03/18/20 12:58 TRAVEL OUTSIDE OF THE [place] IN LAST 30 DAYS: No - HPI Notes: 03/18/20 13:03 24-year-old female to the emergency department with complaints of sore throat, body aches, cough, headache, and nausea that began 2 days ago. She states that 2 weeks ago her best friend was diagnosed with Covid. She has been in contact with her. She does smoke. She states that she took some [id number] flu medicine. She states that she often gets bronchitis and this feels slightly similar. She states that she has nausea but no vomiting. Denies any diarrhea. She states that she has had some change in her taste and smell. The patient was evaluated during the global COVID 19 pandemic, and that diagnosis was suspected/considered upon their initial presentation. Their evaluation, treatment, and testing was consistent with current guidelines for patients who present with complaints or symptoms that may be related to COVID-19. I performed a brief medical screening exam on the patient determined that the patient needs further evaluation and management by main side provider. I have placed initial orders to help expedite care. - Related Data Allergies/Adverse Reactions: No Known Allergies Allergy (Verified 03/18/20 12:58) Past Medical History - Social History Frequency of alcohol use: Occasional Drug Abuse: Marijuana - Past Medical History Cardiac Medical History: Pulmonary Medical History: Denies: Hx Tuberculosis Neurological Medical History: Endocrine Medical History: Reports: Hx Diabetes Mellitus Type 2, Hx Hypothyroidism Renal/ Medical History: Reports: Hx Ovarian Cysts - PCOS, Hx Pelvic Inflammatory Disease Malignancy Medical History: Denies: Hx Breast Cancer, Hx Cervical Cancer, Hx Ovarian Cancer GI Medical History: Reports: Hx Gastroesophageal Reflux Disease Musculoskeltal Medical History: Psychiatric Medical History: Reports: Hx Obsessive Compulsive Disorder Infectious Medical History: Past Surgical History: Reports: Hx Gynecologic Surgery - Ovarian cyst drained laparoscopically at 12 years old. Denies: Hx Hysterectomy, Hx Pacemaker - Immunizations Immunizations up to date: Yes Hx Diphtheria, Pertussis, Tetanus Vaccination: Yes Physical Exam - Vital signs Vitals: Temp Pulse Resp BP Pulse Ox 98.3 F 109 H 18 136/87 H 100 03/18/20 12:07 03/18/20 12:07 03/18/20 12:07 03/18/20 12:07 03/18/20 12:07 Course - Vital Signs Vital signs: Temp Pulse Resp BP Pulse Ox 98.3 F 109 H 18 136/87 H 100 03/18/20 12:07 03/18/20 12:07 03/18/20 12:07 03/18/20 12:07 03/18/20 12:07
--- NOTE | 2020-03-18 13:19 | ER Document Report ---
HPI - HPI Patient complains to provider of: sore throat Time Seen by Provider: 03/18/20 12:58 Pain Level: 5 Notes: 24-year-old female to the emergency department with complaints of sore throat, body aches, cough, headache, and nausea that began 2 days ago. She states that 2 weeks ago her best friend was diagnosed with Covid. She has been in contact with her. She does smoke. She states that she took some [id number] flu medicine. She states that she often gets bronchitis and this feels slightly similar. She states that she has nausea but no vomiting. Denies any diarrhea. She states that she has had some change in her taste and smell. The patient was evaluated during the global COVID 19 pandemic, and that diagnosis was suspected/considered upon their initial presentation. Their evaluation, treatment, and testing was consistent with current guidelines for patients who present with complaints or symptoms that may be related to COVID-19. - ROS Systems Reviewed and Negative: Yes All other systems reviewed and negative - CONSTITUTIONAL Constitutional: REPORTS: Chills. DENIES: Fever - EENT EENT: REPORTS: Sore Throat, Congestion. DENIES: Ear Pain - NEURO Neurology: REPORTS: Headache - CARDIOVASCULAR Cardiovascular: DENIES: Chest pain - RESPIRATORY Respiratory: REPORTS: Coughing. DENIES: Trouble Breathing - GASTROINTESTINAL Gastrointestinal: REPORTS: Nausea. DENIES: Abdominal Pain, Patient vomiting, Diarrhea - DERM Skin Color: Normal Skin Problems: None Past Medical History - General Information source: Patient - Social History Smoking Status: Current Some Day Smoker Frequency of alcohol use: Occasional Drug Abuse: Marijuana Family History: Reviewed & Not Pertinent - Past Medical History Cardiac Medical History: Pulmonary Medical History: Denies: Hx Tuberculosis Neurological Medical History: Endocrine Medical History: Reports: Hx Diabetes Mellitus Type 2, Hx Hypothyroidism Renal/ Medical History: Reports: Hx Ovarian Cysts - PCOS, Hx Pelvic Inflammatory Disease Malignancy Medical History: Denies: Hx Breast Cancer, Hx Cervical Cancer, Hx Ovarian Cancer GI Medical History: Reports: Hx Gastroesophageal Reflux Disease Musculoskeletal Medical History: Psychiatric Medical History: Reports: Hx Obsessive Compulsive Disorder Infectious Medical History: Past Surgical History: Reports: Hx Gynecologic Surgery - Ovarian cyst drained laparoscopically at 12 years old. Denies: Hx Hysterectomy, Hx Pacemaker - Immunizations Immunizations up to date: Yes Hx Diphtheria, Pertussis, Tetanus Vaccination: Yes Vertical Provider Document - CONSTITUTIONAL Agree With Documented VS: Yes Exam Limitations: No Limitations General Appearance: WD/WN - INFECTION CONTROL TRAVEL OUTSIDE OF THE [place] IN LAST 30 DAYS: No - HEENT HEENT: Atraumatic, Normocephalic, PERRLA Notes: Bilateral tonsils with erythema and mild symmetric hypertrophy. Approximately 1+. There is no evidence for peritonsillar abscess. There is no drooling, voice change. There is no Karin's angina. Airway is grossly patent. TMs are clear bilaterally. Bilateral external ear canals are without erythema or discharge. There is mild cerumen in both. - NECK Neck: Normal Inspection, Supple. negative: Lymphadenopathy-Left, Lymphadenopathy-Right - RESPIRATORY Respiratory: Breath Sounds Normal, No Respiratory Distress. negative: Rales, Rhonchi, Wheezing - CARDIOVASCULAR Cardiovascular: Regular Rate, Regular Rhythm, No Murmur - GI/ABDOMEN Gastrointestinal: Abdomen Soft, Abdomen Non-Tender, No Organomegaly - BACK Back: Normal Inspection - MUSCULOSKELETAL/EXTREMETIES Musculoskeletal/Extremeties: PREET PRICE - NEURO Level of Consciousness: Awake, Alert, Appropriate Motor/Sensory: No Motor Deficit, No Sensory Deficit - DERM Integumentary: Warm, Dry, No Rash Course - Re-evaluation Re-evalutation: Impression: Upper respiratory infection, sore throat. Noted negative chest x- ray, negative influenza and negative rapid strep screen. Plan will be to discharge the patient home and have her quarantine while awaiting Covid swab. Will send home with cough medicine, albuterol inhaler, Motrin. Encouraged her to rest. Patient was provided with discharge information including: As a person under investigation for COVID-19, [facility] and [facility], division of public health advises you to adhere to the following guidance until your test results are reported to you. If your test result is positive, you will receive additional information from your provider and your local health department at that time. Remain at home until you are cleared by the healthcare provider public health authorities. Keep a log of visitors to your home and notify any visitors to your home of your isolation status. If you plan to move to a new address or leave the country, notify the local health department and your County. Call your doctor or seek care if you have an urgent medical need. Before seeking medical care, call ahead to get instructions from the provider before arriving at the medical office, clinic, or hospital. Notify them that you are being tested for the virus that causes COVID-19 so that arrangements can be made, as necessary, to prevent transmission to others in the healthcare setting. Next, notify the [facility] department and your County. If a medical emergency arises and you need to call 911, informed the first responders that you are being tested for the virus that causes COVID-19. Next, notified the [facility] health department and your County. - Vital Signs Vital signs: Temp Pulse Resp BP Pulse Ox 98.3 F 109 H 18 136/87 H 100 03/18/20 12:07 03/18/20 12:07 03/18/20 12:07 03/18/20 12:07 03/18/20 12:07 Discharge - Discharge Clinical Impression: Cough Pharyngitis Qualifiers: Pharyngitis/tonsillitis etiology: unspecified etiology Qualified Code(s): J02.9 - Acute pharyngitis, unspecified URI (upper respiratory infection) Qualifiers: URI type: unspecified URI Qualified Code(s): J06.9 - Acute upper respiratory infection, unspecified Condition: Stable Disposition: HOME, SELF-CARE Instructions: Upper Respiratory Illness ([facility]) Additional Instructions: Patient was provided with discharge information including: As a person under investigation for COVID-19, [facility]ending [facility] and [facility], division of public health advises you to adhere to the following guidance until your test results are reported to you. If your test result is positive, you will receive additional information from your provider and your local health department at that time. Remain at home until you are cleared by the healthcare provider public health authorities. Keep a log of visitors to your home and notify any visitors to your home of your isolation status. If you plan to move to a new address or leave the country, notify the local health department and your County. Call your doctor or seek care if you have an urgent medical need. Before seeking medical care, call ahead to get instructions from the provider before arriving at the medical office, clinic, or hospital. Notify them that you are being tested for the virus that causes COVID-19 so that arrangements can be made, as necessary, to prevent transmission to others in the healthcare setting. Next, notify the local health department and your County. If a medical emergency arises and you need to call 911, informed the first responders that you are being tested for the virus that causes COVID-19. Next, notified the local health department and your County. Prescriptions: Ibuprofen [Motrin 600 mg Tablet] 600 mg PO Q8HP PRN #24 tablet PRN Reason: Benzonatate [Tessalon Perles 100 mg Capsule] 100 mg PO Q8HP PRN #40 capsule PRN Reason: Albuterol Sulfate [Albuterol Sulfate Hfa] 2 puff IH Q4H #1 [email or web address] Forms: Return to Work Referrals: [facility] [Provider Group] - Follow up in 3-5 days
[2020-03-18 14:17] LABS: A TYPE INFLUENZA AG NEGATIVE (NEGATIVE); B INFLUENZA AG NEGATIVE (NEGATIVE)
--- NOTE | 2020-03-18 15:31 | RADIOLOGY REPORT (SQ) ---
EXAM DESCRIPTION: CHEST SINGLE VIEW IMAGES COMPLETED DATE/TIME: 03/18/2020 3:22 pm REASON FOR STUDY: cough, body aches COMPARISON: 03/17/2015 EXAM PARAMETERS: NUMBER OF VIEWS: One view. TECHNIQUE: Single frontal radiographic view of the chest acquired. RADIATION DOSE: NA LIMITATIONS: None. FINDINGS: LUNGS AND PLEURA: No opacities, masses or pneumothorax. No pleural effusion. MEDIASTINUM AND HILAR STRUCTURES: No masses. Contour normal. HEART AND VASCULAR STRUCTURES: Heart normal in size. Normal vasculature. BONES: No acute findings. HARDWARE: None in the chest. OTHER: No other significant finding. IMPRESSION: NO ACUTE RADIOGRAPHIC FINDING IN THE CHEST. TECHNICAL DOCUMENTATION: JOB ID: [id number] 2010 [employer]- All Rights Reserved Reading location - IP/workstation name: [email or web address]
== END 2020-03-18 16:54 | disposition home or self-care (01) ==
LOC: ER 11:53
DX: J06.9 Acute upper respiratory infection, unspecified (principal); J02.9 Acute pharyngitis, unspecified; M79.10 Myalgia, unspecified site; R11.0 Nausea; R51.9 Headache, unspecified; Z20.828 Contact with and (suspected) exposure to other viral communicable diseases
CPT/HCPCS: 99284; 87070; 87880; 87635; 87804; 71045; S0119; C9803

== ENCOUNTER 2020-06-18 09:39 | Emergency (ER) | payer SELFPAY ==
[2020-06-18 09:45] VITALS: BP 135/80
[2020-06-18 10:42] LABS: APPEARANCE,URINE CLEAR; BILIRUBIN,URINE NEGATIVE (NEGATIVE); COLOR,URINE YELLOW; GLUCOSE, URINE 50 mg/dL (NEGATIVE); KETONES,URINE TRACE mg/dL (NEGATIVE); LEUKOCYTE ESTERASE,URINE TRACE (NEGATIVE); NITRITE,URINE NEGATIVE (NEGATIVE); PROTEIN,URINE NEGATIVE (NEGATIVE); URINE SPECIFIC GRAVITY 1.027; UROBILINOGEN,URINE NEGATIVE mg/dL (<2.0)
[2020-06-18] MEDS ORDERED: CEFTRIAXONE INJ 250 MG VIAL IM ONE (11:18)
[2020-06-18] MEDS ORDERED: LIDOCAINE 1% INJ-PF (10 MG/ML) 30 ML SDV INJ ONE (11:18)
[2020-06-18] MEDS ORDERED: AZITHROMYCIN 250 MG TABLET PO ONE (11:18)
--- NOTE | 2020-06-18 11:18 | ER Document Report ---
HPI - HPI Time Seen by Provider: 06/18/20 10:07 Pain Level: 3 Context: Patient is a 24-year-old female presents emergency department with chief complaint of burning with urination. Patient did have protected sexual intercourse a few days ago. Patient reports that she has had this irritation in the past and diagnosed with chlamydia. Patient would like STI screening. Patient denies fever. Patient does report some lower abdominal cramping. Patient denies vaginal discharge. - REPRODUCTIVE Reproductive: DENIES: : Past Medical History - General Information source: Patient - Social History Smoking Status: Current Every Day Smoker Frequency of alcohol use: Occasional Drug Abuse: Marijuana Lives with: Family Family History: Reviewed & Not Pertinent - Past Medical History Cardiac Medical History: Reports: None Pulmonary Medical History: Reports: None Denies: Hx Tuberculosis EENT Medical History: Reports: None Neurological Medical History: Reports: None Endocrine Medical History: Reports: Hx Diabetes Mellitus Type 2, Hx Hypothyroidism Renal/ Medical History: Reports: Hx Ovarian Cysts - PCOS, Hx Pelvic Inflammatory Disease Malignancy Medical History: Denies: Hx Breast Cancer, Hx Cervical Cancer, Hx Ovarian Cancer GI Medical History: Reports: Hx Gastroesophageal Reflux Disease Musculoskeletal Medical History: Reports None Skin Medical History: Reports None Psychiatric Medical History: Reports: None, Hx Obsessive Compulsive Disorder Infectious Medical History: Past Surgical History: Reports: Hx Gynecologic Surgery - Ovarian cyst drained laparoscopically at 12 years old. Denies: Hx Hysterectomy, Hx Pacemaker - Immunizations Immunizations up to date: Yes Hx Diphtheria, Pertussis, Tetanus Vaccination: Yes Vertical Provider Document - CONSTITUTIONAL Agree With Documented VS: Yes Exam Limitations: No Limitations General Appearance: No Apparent Distress - INFECTION CONTROL TRAVEL OUTSIDE OF THE [place] IN LAST 30 DAYS: No - HEENT HEENT: Atraumatic, Normal ENT Exam, Normocephalic, PERRLA - RESPIRATORY Respiratory: Breath Sounds Normal - CARDIOVASCULAR Cardiovascular: Regular Rate, Regular Rhythm - GI/ABDOMEN Gastrointestinal: Abdomen Soft, Abdomen Non-Tender, Normal Bowel Sounds - MUSCULOSKELETAL/EXTREMETIES Musculoskeletal/Extremeties: FROM, Non-Tender, No Edema - NEURO Level of Consciousness: Awake, Alert, Appropriate - DERM Integumentary: Warm, Dry, No Rash Course - Re-evaluation Re-evalutation: 06/18/20 12:04 We will prophylactically treat for gonorrhea and chlamydia while here in the emergency department. Will patient will be notified of results. Patient to return if symptoms worsen or change. Patient's urinalysis was unremarkable. Patient is not . - Vital Signs Vital signs: Temp Pulse Resp BP Pulse Ox 98.6 F 92 16 135/80 H 100 06/18/20 09:43 06/18/20 09:43 06/18/20 09:43 06/18/20 09:43 06/18/20 09:43 - Laboratory Results Laboratory Results Interpreted: 06/18/20 10:08 Urine Glucose (UA) 50 H Urine Ketones TRACE H Ur Leukocyte Esterase TRACE H 06/18/20 12:04 Patient's urinalysis showed trace ketones and trace leukocytes. Critical Laboratory Results Reviewed: No Critical Results - Radiology Results Critical Radiology Results Reviewed: No Critical Results Discharge - Discharge Clinical Impression: Dysuria Condition: Stable Disposition: HOME, SELF-CARE Additional Instructions: *Today was in the emergency department for vaginal irritation. We did treat you for gonorrhea and chlamydia. Your cultures are pending. If you develop any new or worsening symptoms please return to the emergency department. If you are positive for an STI, please make sure that your partner is aware that they can be treated appropriately if needed. Please avoid sexual intercourse until your symptoms have improved and for at least 14 days.
[2020-06-18 12:04] LABS: CHLAM PCR NOT DETECTED (NOT DETECT)
== END 2020-06-18 11:47 | disposition home or self-care (01) ==
LOC: ER 09:39
DX: R30.0 Dysuria (principal); F17.200 Nicotine dependence, unspecified, uncomplicated; F12.10 Cannabis abuse, uncomplicated; E11.9 Type 2 diabetes mellitus without complications; Z20.2 Contact with and (suspected) exposure to infections with a predominantly sexual mode of transmission
CPT/HCPCS: 99284; 96372; 81025; 81001; 87491; 87591; J3490; J0696

== ENCOUNTER 2020-06-20 10:26 | Emergency (ER) | payer OTHER ==
[2020-06-20 10:39] VITALS: BP 132/76
--- NOTE | 2020-06-20 10:55 | ER Document Report ---
ED GI/ - General Chief Complaint: Vaginal Pain Stated Complaint: VAGINAL IRRITATION Time Seen by Provider: 06/20/20 10:49 Mode of Arrival: Ambulatory Information source: Patient Notes: Patient presents complaining of vaginal irritation for the past 3 days. Patient developed vaginal discharge yesterday. Patient does complain of lower pelvic tenderness. Patient states she was here recently and treated empirically for gonorrhea and chlamydia. Patient states she still has symptoms and wanted to be rechecked. TRAVEL OUTSIDE OF THE [place] IN LAST 30 DAYS: No - HPI Patient complains to provider of: Pelvic pain, Vaginal discharge Onset: Other - 3 days Timing/Duration: Persistent Quality of pain: Burning Pain Level: 1 Location: Pelvis Sexual history: Active Associated symptoms: Dysuria, Vaginal discharge. denies: Fever, Nausea, Urinary hesitancy Exacerbated by: Denies Relieved by: Denies Similar symptoms previously: No Recently seen / treated by doctor: Yes - Related Data Allergies/Adverse Reactions: No Known Allergies Allergy (Verified 03/18/20 12:58) Past Medical History - General Information source: Patient - Social History Smoking Status: Current Every Day Smoker Frequency of alcohol use: Social Drug Abuse: Marijuana Occupation: None Family History: Reviewed & Not Pertinent - Past Medical History Cardiac Medical History: Pulmonary Medical History: Denies: Hx Tuberculosis Neurological Medical History: Endocrine Medical History: Reports: Hx Diabetes Mellitus Type 2, Hx Hypothyroidism Renal/ Medical History: Reports: Hx Ovarian Cysts - PCOS, Hx Pelvic Inflammatory Disease Malignancy Medical History: Denies: Hx Breast Cancer, Hx Cervical Cancer, Hx Ovarian Cancer GI Medical History: Reports: Hx Gastroesophageal Reflux Disease Musculoskeletal Medical History: Psychiatric Medical History: Reports: Hx Obsessive Compulsive Disorder Infectious Medical History: Past Surgical History: Reports: Hx Gynecologic Surgery - Ovarian cyst drained laparoscopically at 12 years old. Denies: Hx Hysterectomy, Hx Pacemaker - Immunizations Immunizations up to date: Yes Hx Diphtheria, Pertussis, Tetanus Vaccination: Yes Review of Systems - Review of Systems Constitutional: No symptoms reported. denies: Fever EENT: No symptoms reported Cardiovascular: No symptoms reported Respiratory: No symptoms reported. denies: Cough, Short of breath Gastrointestinal: Abdominal pain. denies: Nausea, Vomiting Genitourinary: Dysuria Female Genitourinary: Vaginal discharge, Other - Vaginal irritation Musculoskeletal: No symptoms reported. denies: Back pain Skin: No symptoms reported Hematologic/Lymphatic: No symptoms reported Neurological/Psychological: No symptoms reported Physical Exam - Vital signs Vitals: Temp Pulse Resp BP Pulse Ox 99.0 F 100 16 132/76 H 100 06/20/20 10:38 06/20/20 10:38 06/20/20 10:38 06/20/20 10:38 06/20/20 10:38 - General General appearance: Appears well, Alert In distress: None - HEENT Head: Normocephalic, Atraumatic Eyes: Normal Conjunctiva: Normal Nasal: Normal Mouth/Lips: Normal Mucous membranes: Normal Neck: Normal, Supple - Respiratory Respiratory status: No respiratory distress Chest status: Nontender Breath sounds: Normal. No: Rales, Rhonchi, Stridor, Wheezing Chest palpation: Normal - Cardiovascular Rhythm: Regular Heart sounds: S1 appreciated, S2 appreciated - Genitourinary External exam: Normal Speculum exam: Cervix closed, Vaginal discharge Vaginal bleeding: None Bimanuel exam: Normal. No: Cervical motion tender, Adnexal tenderness Notes: Radha PCT as standby, patient does have some mild erythema to vaginal area with white adherent discharge, suspect vaginal candidiasis - Back Back: Normal, Nontender. No: CVA tenderness - Extremities General upper extremity: Normal inspection, Normal ROM General lower extremity: Normal inspection, Normal ROM - Neurological Neuro grossly intact: Yes Cognition: Normal Orientation: AAOx4 Alexandru Coma Scale Eye Opening: Spontaneous Mabel Coma Scale Verbal: Oriented Alexandru Coma Scale Motor: Obeys Commands Alexandru Coma Scale Total: 15 - Psychological Associated symptoms: Normal affect, Normal mood - Skin Skin Temperature: Warm Skin Moisture: Dry Skin Color: Normal Course - Re-evaluation Re-evalutation: 06/20/20 Patient with vaginal candidiasis and bacterial vaginosis noted on diagnostic evaluation. Patient does have some leukocytes in urine and does have urinary symptoms so antibiotics will be added as this is patient's second visit for the symptoms. Patient nontoxic in appearance with stable vital signs. Good return precautions discussed with patient. - Vital Signs Vital signs: Temp Pulse Resp BP Pulse Ox 99.0 F 100 16 132/76 H 100 06/20/20 10:38 06/20/20 10:38 06/20/20 10:38 06/20/20 10:38 06/20/20 10:38 - Laboratory Results Result Diagrams: 06/20/20 11:00 06/20/20 11:00 Laboratory Results Interpreted: 06/20/20 06/20/20 06/20/20 11:00 11:00 11:00 Lymph % (Auto) 48.2 H Sodium 135.8 L Creatinine 0.41 L Glucose 146 H Ur Leukocyte Esterase MODERATE H Labs- All tests 24 hr 06/20/20 06/20/20 06/20/20 11:00 11:00 11:00 WBC 6.2 RBC 4.23 Hgb 13.2 Hct 37.3 MCV 88 MCH 31.1 MCHC 35.3 RDW 13.0 Plt Count 223 Lymph % (Auto) 48.2 H Weston % (Auto) 5.5 Eos % (Auto) 0.7 Baso % (Auto) 0.5 Absolute Neuts (auto) 2.8 Absolute Lymphs (auto) 3.0 Absolute Monos (auto) 0.3 Absolute Eos (auto) 0.0 Absolute Basos (auto) 0.0 Seg Neutrophils % 45.1 Sodium 135.8 L Potassium 4.6 Chloride 99 Carbon Dioxide 26 Anion Gap 11 BUN 10 Creatinine 0.41 L Est GFR ( Amer) > 60 Est GFR (MDRD) Non-Af > 60 Glucose 146 H Calcium 10.0 Serum HCG, Qual NEGATIVE Urine Color Urine Appearance Urine pH Ur Specific [place] Urine Protein Urine Glucose (UA) Urine Ketones Urine Blood Urine Nitrite Urine Bilirubin Urine Urobilinogen Ur Leukocyte Esterase Urine WBC (Auto) Urine RBC (Auto) Urine Bacteria (Auto) Squamous Epi Cells Auto Urine Mucus (Auto) Urine Ascorbic Acid Epi Cells (Wet Prep) Bacteria (Wet Prep) Trichomonas (Wet Prep) Vaginal WBC Vaginal RBC Vaginal Yeast 06/20/20 06/20/20 11:00 11:57 WBC RBC Hgb Hct MCV MCH MCHC RDW Plt Count Lymph % (Auto) Weston % (Auto) Eos % (Auto) Baso % (Auto) Absolute Neuts (auto) Absolute Lymphs (auto) Absolute Monos (auto) Absolute Eos (auto) Absolute Basos (auto) Seg Neutrophils % Sodium Potassium Chloride Carbon Dioxide Anion Gap BUN Creatinine Est GFR ( Amer) Est GFR (MDRD) Non-Af Glucose Calcium Serum HCG, Qual Urine Color YELLOW Urine Appearance SLIGHTLY-CLOUDY Urine pH 6.0 Ur Specific [place] 1.024 Urine Protein NEGATIVE Urine Glucose (UA) NEGATIVE Urine Ketones NEGATIVE Urine Blood NEGATIVE Urine Nitrite NEGATIVE Urine Bilirubin NEGATIVE Urine Urobilinogen NEGATIVE Ur Leukocyte Esterase MODERATE H Urine WBC (Auto) 2 Urine RBC (Auto) 2 Urine Bacteria (Auto) TRACE Squamous Epi Cells Auto 10 Urine Mucus (Auto) FEW Urine Ascorbic Acid NEGATIVE Epi Cells (Wet Prep) 4+ EPITHELIALS SEEN Bacteria (Wet Prep) 4+ BACTERIA SEEN Trichomonas (Wet Prep) NO TRICHOMONAS SEEN Vaginal WBC 2+ WBCS SEEN Vaginal RBC RARE RBCS SEEN Vaginal Yeast YEAST SEEN Critical Laboratory Results Reviewed: No Critical Results - Radiology Results Critical Radiology Results Reviewed: No Critical Results Discharge - Discharge Clinical Impression: Dysuria, Vagina, candidiasis, Bacterial vaginosis Condition: Stable Disposition: HOME, SELF-CARE Instructions: Vaginal Yeast Infection ([facility]), Vaginosis, Bacterial ([facility]) Additional Instructions: Return immediately for any new or worsening symptoms Followup with your primary care provider, call tomorrow to make a followup appointment Prescriptions: Fluconazole [Diflucan] 150 mg PO ONCE PRN #1 tablet PRN Reason: Metronidazole [Flagyl 500 mg Tablet] 500 mg PO BID #14 tablet Cephalexin Monohydrate [Keflex 500 mg Capsule] 500 mg PO BID 5 Days #10 capsule
[2020-06-20 11:19] LABS: ABSOLUTE MONOCYTES (AUTO) 0.3 10^3/uL (0.1-1.4); ABSOLUTE NEUT (AUTO) 2.8 10^3/uL (1.7-8.2); BASOPHILS % (AUTO) 0.5 % (0-2); EOSINOPHILS % (AUTO) 0.7 % (0-6); HEMATOCRIT 37.3 % (36.0-47.0); HEMOGLOBIN 13.2 g/dL (12.0-15.5); LYMPHOCYTES % (AUTO) 48.2 % (13-45); MEAN CORPUSCULAR HEMOGLOBIN 31.1 pg (27.0-33.4); MEAN CORPUSCULAR HGB CONC 35.3 g/dL (32.0-36.0); MEAN CORPUSCULAR VOLUME 88 fl (80-97); MONOCYTES % (AUTO) 5.5 % (3-13); PLATELET COUNT 223 10^3/uL (150-450); RED BLOOD COUNT 4.23 10^6/uL (3.72-5.28); SEGMENTED NEUTROPHILS % (AUTO) 45.1 % (42-78); TOTAL CELLS COUNTED % (AUTO) 100 %; WHITE BLOOD COUNT 6.2 10^3/uL (4.0-10.5)
[2020-06-20 11:44] LABS: ANION GAP 11 (5-19); BLOOD UREA NITROGEN 10 mg/dL (7-20); CARBON DIOXIDE 26 mmol/L (22-30); CHLORIDE 99 mmol/L (98-107); GLUCOSE 146 mg/dL (75-110); POTASSIUM 4.6 mmol/L (3.6-5.0)
[2020-06-20 12:27] LABS: T.VAGINALIS (WET MOUNT) NO TRICHOMONAS SEEN; YEAST (WET MOUNT) YEAST SEEN
[2020-06-20 12:28] LABS: BACTERIA (WET MOUNT) 4+ BACTERIA SEEN; EPITHELIALS (WET MOUNT) 4+ EPITHELIALS SEEN; RBCS (WET MOUNT) RARE RBCS SEEN; WBCS (WET MOUNT) 2+ WBCS SEEN
[2020-06-20 12:32] LABS: APPEARANCE,URINE SLIGHTLY-CLOUDY; BILIRUBIN,URINE NEGATIVE (NEGATIVE); COLOR,URINE YELLOW; GLUCOSE, URINE NEGATIVE (NEGATIVE); KETONES,URINE NEGATIVE (NEGATIVE); LEUKOCYTE ESTERASE,URINE MODERATE (NEGATIVE); NITRITE,URINE NEGATIVE (NEGATIVE); PROTEIN,URINE NEGATIVE (NEGATIVE); URINE SPECIFIC GRAVITY 1.024; UROBILINOGEN,URINE NEGATIVE mg/dL (<2.0)
== END 2020-06-20 12:54 | disposition home or self-care (01) ==
LOC: ER 10:26
DX: B37.3 Candidiasis of vulva and vagina (principal); N76.0 Acute vaginitis; B96.89 Other specified bacterial agents as the cause of diseases classified elsewhere; F17.200 Nicotine dependence, unspecified, uncomplicated; F12.10 Cannabis abuse, uncomplicated; E11.9 Type 2 diabetes mellitus without complications
CPT/HCPCS: 36415; 80048; 81001; 84703; 85025; 87210; 99283